=== PATIENT | male | born 1980 | race African-American/Black ===

== ENCOUNTER 2017-03-20 08:21 | Emergency (ER) | payer MEDICAID ==
[~2017-03-20] VITALS: Ht 175.3 cm; Wt 60.0 kg
[~2017-03-20 08:21] MED LIST: PENI500T PO
[2017-03-20 08:22] VITALS: BP 127/80; PULSE 66; RESP 20; TEMP 98.4; O2SAT 98
[2017-03-20 09:00] VITALS: RESP 18; O2SAT 99
[2017-03-20] MEDS ORDERED: SODIUM CHLOR 0.9% 1000 ML INJ 1,000 ML IV SCH (09:00)
[2017-03-20] MEDS ORDERED: ALUMINUM/MAGNESIUM/SIMETH 30 ML CUP PO ONE (09:00)
[2017-03-20] MEDS ORDERED: FAMOTIDINE 20 MG/2 ML VIAL IV PUSH ONE (09:00)
[2017-03-20] MEDS ORDERED: LIDOCAINE VISCOUS 2% SOLN 15 ML UDC PO ONE (09:00)
[2017-03-20] MEDS: SODIUM CHLORIDE 0.9% FLUSH 10 ML FLUSH IVF PRN ×3 (09:10→10:34)
--- NOTE | 2017-03-20 09:19 | PD ---
HPI Chief Complaint: Chest Pain Time Seen by Provider: 08:44 Travel History International Travel<30 days: No Contact w/Intl Traveler<30days: No Traveled to known affect area: No History of Present Illness HPI Patient is a 36-year-old male with only history of asthma who presents to emergency room with complaints of epigastric pain for the past month. Reports that for the past month, he has had constant pain to his epigastrium, that it it hurts him to take a deep breath, reports it hurts when he moves, reports that nothing makes his symptoms better or worse. Patient reports no fevers or chills, denies chest pain at this time. Patient denies any recent travels or trips, denies any use of drugs. 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 Patient does report that he drinks a few beers at nighttime, patient with no other complaints. PFSH Past Medical History Asthma: Yes Autoimmune Disease: No Blood Disorders: No Cancer: No Cardiovascular Problems: No Diminished Hearing: No Endocrine: No Genitourinary: No Immune Disorder: No Musculoskeletal: No Neurologic: No Psychiatric: No Reproductive: No Respiratory: Yes Tetanus Vaccination: > 5 Years Influenza Vaccination: No Past Surgical History Surgical History: No Previous Surgery Other Surgery: No Social History Alcohol Use: No Tobacco Use: No Substance Use: No (pt denies ) Allergies-Medications (Allergen,Severity, Reaction): Coded Allergies: Codeine (Verified Allergy, Severe, itching, 03/20/17) Reported Meds & Prescriptions Reported Meds & Active Scripts Active Protonix (Pantoprazole Sodium) 40 Mg Tab 40 Mg PO DAILY Review of Systems General / Constitutional: No: Fever Eyes: No: Visual changes HENT: No: Headaches Cardiovascular: No: Chest Pain or Discomfort Respiratory: Positive: Shortness of Breath Gastrointestinal: Positive: Abdominal Pain Genitourinary: No: Dysuria Musculoskeletal: No: Pain Skin: No Rash Neurologic: No: Weakness Psychiatric: No: Depression Endocrine: No: Polydipsia Hematologic/Lymphatic: No: Easy Bruising Physical Exam Narrative GENERAL: No acute distress, nontoxic SKIN: Focused skin assessment warm/dry. HEAD: Atraumatic. Normocephalic. EYES: Pupils equal and round. No scleral icterus. No injection or drainage. ENT: No nasal bleeding or discharge. Mucous membranes pink and moist. NECK: Trachea midline. No JVD. CARDIOVASCULAR: Regular rate and rhythm. No murmur appreciated. RESPIRATORY: No accessory muscle use. Clear to auscultation. Breath sounds equal bilaterally. GASTROINTESTINAL: Abdomen soft, patient with increased tenderness to his epigastrium, no rebound or guarding on exam MUSCULOSKELETAL: No obvious deformities. No clubbing. No cyanosis. No edema. NEUROLOGICAL: Awake and alert. No obvious cranial nerve deficits. Motor grossly within normal limits. Normal speech. PSYCHIATRIC: Appropriate mood and affect; insight and judgment normal. Data Data Last Documented VS Vital Signs Date Time Temp Pulse Resp B/P Pulse Ox O2 Delivery O2 Flow Rate FiO2 03/20/17 11:39 98.0 47 18 129/80 98 Room Air Orders Electrocardiogram (03/20/17 ) Ckmb (Isoenzyme) Profile (03/20/17 09:00) Complete Blood Count With Diff (03/20/17 09:00) Comprehensive Metabolic Panel (03/20/17:00) D-Dimer (03/20/17:00) Magnesium (Mg) (03/20/17 09:00) Prothrombin Time / Inr (Pt) (03/20/17 09:00) Act Partial Throm Time (Ptt) (03/20/17 09:00) Troponin I (03/20/17:00) Lipase (03/20/17 09:00) Chest, Single Ap (03/20/17 09:00) Ecg Monitoring (03/20/17 09:00) Iv Access Insert/Monitor (03/20/17:00) Oximetry (03/20/17 09:00) Sodium Chloride 0.9% Flush (Ns Flush) (03/20/17 09:00) Sodium Chlor 0.9% 1000 Ml Inj (Ns 1000 M (03/20/17 09:00) Famotidine Inj (Pepcid Inj) (03/20/17 09:00) Al-Mag Hy-Si 40-40-4 Mg/Ml Liq (Mag-Al P (03/20/17 09:00) Lidocaine 2% Viscous (Xylocaine 2% Visco (03/20/17 09:00) CKMB (03/20/17 09:05) CKMB% (03/20/17 09:05) Ct Pulmonary Angiogram (03/20/17 10:19) Ketorolac Inj (Toradol Inj) (03/20/17 10:30) Iohexol 350 Inj (Omnipaque 350 Inj) (03/20/17 11:28) Electrocardiogram (03/20/17 ) Ckmb (Isoenzyme) Profile (03/20/17 13:04) Troponin I (03/20/17 13:04) CKMB (03/20/17 13:00) CKMB% (03/20/17 13:00) Labs Laboratory Tests Test 03/20/17 03/20/17 09:05 13:00 White Blood Count 4.3 TH/MM3 Red Blood Count 4.95 MIL/MM3 Hemoglobin 14.8 GM/DL Hematocrit 43.9 % Mean Corpuscular Volume 88.7 FL Mean Corpuscular Hemoglobin 29.9 PG Mean Corpuscular Hemoglobin 33.7 % Concent Red Cell Distribution Width 13.3 % Platelet Count 186 TH/MM3 Mean Platelet Volume 7.8 FL Neutrophils (%) (Auto) 52.1 % Lymphocytes (%) (Auto) 34.7 % Monocytes (%) (Auto) 10.1 % Eosinophils (%) (Auto) 2.5 % Basophils (%) (Auto) 0.6 % Neutrophils # (Auto) 2.3 TH/MM3 Lymphocytes # (Auto) 1.5 TH/MM3 Monocytes # (Auto) 0.4 TH/MM3 Eosinophils # (Auto) 0.1 TH/MM3 Basophils # (Auto) 0.0 TH/MM3 CBC Comment DIFF FINAL Differential Comment Prothrombin Time 10.8 SEC Prothromb Time International 1.0 RATIO Ratio Activated Partial 28.5 SEC Thromboplast Time D-Dimer Quantitative (PE/DVT) LESS THAN 0.19 MG/L FEU Sodium Level 141 MEQ/L Potassium Level 4.5 MEQ/L Chloride Level 106 MEQ/L Carbon Dioxide Level 27.2 MEQ/L Anion Gap 8 MEQ/L Blood Urea Nitrogen 12 MG/DL Creatinine 1.33 MG/DL Estimat Glomerular Filtration 74 ML/MIN Rate Random Glucose 81 MG/DL Calcium Level 8.8 MG/DL Magnesium Level 2.2 MG/DL Total Bilirubin 0.5 MG/DL Aspartate Amino Transf 16 U/L (AST/SGOT) Alanine Aminotransferase 19 U/L (ALT/SGPT) Alkaline Phosphatase 71 U/L Total Creatine Kinase 173 U/L 157 U/L Creatine Kinase MB LESS THAN 0.5 0.6 NG/ML NG/ML Troponin I LESS THAN 0.02 LESS THAN 0.02 NG/ML NG/ML Total Protein 7.3 GM/DL Albumin 3.8 GM/DL Lipase 83 U/L MDM Medical Decision Making Medical Screen Exam Complete: Yes Emergency Medical Condition: Yes Interpretation(s) EKG at 0838: Sinus bradycardia at 49 beats minute, QT/QTc 414/384, patient with early repolarization on EKG Vital Signs Date Time Temp Pulse Resp B/P Pulse Ox O2 Delivery O2 Flow Rate FiO2 03/20/17 09:00 18 99 Room Air 03/20/17 08:31 17 99 Room Air 03/20/17 08:22 98.4 66 20 127/80 98 Room Air Differential Diagnosis GERD, ACS though unlikely, PE, gastritis, electrolyte abnormality Narrative Course 36-year-old male who presents to emergency room with complaints of epigastric pain for the past month. Patient has been having constant pains to his epigastrium, reports that nothing makes pain better or worse. Patient reports that food does not make symptoms better or worse, reports that taking deep breath and movement does make symptoms worse. Patient was placed on a cardiac monitor technician upon arrival to emergency room. EKG obtained which shows early repolarization, no acute changes. Plan to check labs , including d-dimer, CBC, CMP, x-ray of the chest. GI cocktail as well as Pepcid ordered. We'll continue to monitor patient on cardiac monitor technician. Vital Signs Date Time Temp Pulse Resp B/P Pulse Ox O2 Delivery O2 Flow Rate FiO2 03/20/17 11:39 98.0 47 18 129/80 98 Room Air 03/20/17 11:34 17 03/20/17 10:01 49 17 136/88 99 Room Air 03/20/17 09:00 18 99 Room Air 03/20/17 08:31 17 99 Room Air 03/20/17 08:22 98.4 66 20 127/80 98 Room Air Laboratory Tests Test 03/20/17 09:05 White Blood Count 4.3 TH/MM3 (4.0-11.0) Red Blood Count 4.95 MIL/MM3 (4.50-5.90) Hemoglobin 14.8 GM/DL (13.0-17.0) Hematocrit 43.9 % (39.0-51.0) Mean Corpuscular Volume 88.7 FL (80.0-100.0) Mean Corpuscular Hemoglobin 29.9 PG (27.0-34.0) Mean Corpuscular Hemoglobin 33.7 % Concent (32.0-36.0) Red Cell Distribution Width 13.3 % (11.6-17.2) Platelet Count 186 TH/MM3 (150-450) Mean Platelet Volume 7.8 FL (7.0-11.0) Neutrophils (%) (Auto) 52.1 % (16.0-70.0) Lymphocytes (%) (Auto) 34.7 % (9.0-44.0) Monocytes (%) (Auto) 10.1 % (0.0-8.0) Eosinophils (%) (Auto) 2.5 % (0.0-4.0) Basophils (%) (Auto) 0.6 % (0.0-2.0) Neutrophils # (Auto) 2.3 TH/MM3 (1.8-7.7) Lymphocytes # (Auto) 1.5 TH/MM3 (1.0-4.8) Monocytes # (Auto) 0.4 TH/MM3 (0-0.9) Eosinophils # (Auto) 0.1 TH/MM3 (0-0.4) Basophils # (Auto) 0.0 TH/MM3 (0-0.2) CBC Comment DIFF FINAL Differential Comment Prothrombin Time 10.8 SEC (9.8-11.6) Prothromb Time International 1.0 RATIO Ratio Activated Partial 28.5 SEC Thromboplast Time (24.3-30.1) D-Dimer Quantitative (PE/DVT) LESS THAN 0.19 MG/L FEU (0.00-0.50) Sodium Level 141 MEQ/L (136-145) Potassium Level 4.5 MEQ/L (3.5-5.1) Chloride Level 106 MEQ/L (98-107) Carbon Dioxide Level 27.2 MEQ/L (21.0-32.0) Anion Gap 8 MEQ/L (5-15) Blood Urea Nitrogen 12 MG/DL (7-18) Creatinine 1.33 MG/DL (0.60-1.30) Estimat Glomerular Filtration 74 ML/MIN (>89) Rate Random Glucose 81 MG/DL (74-106) Calcium Level 8.8 MG/DL (8.5-10.1) Magnesium Level 2.2 MG/DL (1.5-2.5) Total Bilirubin 0.5 MG/DL (0.2-1.0) Aspartate Amino Transf 16 U/L (15-37) (AST/SGOT) Alanine Aminotransferase 19 U/L (12-78) (ALT/SGPT) Alkaline Phosphatase 71 U/L (45-117) Total Creatine Kinase 173 U/L (39-308) Creatine Kinase MB LESS THAN 0.5 NG/ML (0.5-3.6) Troponin I LESS THAN 0.02 NG/ML (0.02-0.05) Total Protein 7.3 GM/DL (6.4-8.2) Albumin 3.8 GM/DL (3.4-5.0) Lipase 83 U/L (73-393) Last Impressions CT Angiography 03/20/17 1019 Signed Impressions: Service Date/Time: Monday, March 20, 2017 11:22 - CONCLUSION: No evidence of pulmonary embolus. Mild paraseptal emphysema. Red Maxwell MD Chest X-Ray 03/20/17 0900 Signed Impressions: Service Date/Time: Monday, March 20, 2017 09:12 - CONCLUSION: No acute cardiopulmonary disease identified. Red Maxwell MD All labs and all studies reviewed patient in detail. Patient reports that he is feeling much better at this time. Symptoms are most likely from esophagitis , he will most likely need EGD as outpt. Plan to start patient on omeprazole and follow-up with dive master, will have him return to emergency room as needed Patient with no chest pain or sob during the entire ER visit, EKG shows is ST segment elevations diffusely, consistent with early repolarization. Repeat trop is negative - patient's pain is in his epigastrium and not in his chest, I do believe the patient has esophagitis and not pericarditis this time. He will follow up with his primary care doctor and will return to emergency room as needed. Diagnosis Primary Impression: Esophagitis Patient Instructions: General Instructions Additional Instructions: Please follow up with your primary care doctor in 2-3 days Please follow up with a dive master as soon as possible Return to ER as needed Med/Other Pt SpecificInfo: Prescription(s) given Scripts Pantoprazole (Protonix)40 Mg Tab40 Mg PO DAILY #30 TAB Ref 0 Prov:Mica Titus DO 03/20/17 Disposition: 01 DISCHARGE HOME Condition: Stable Mica Titus DO Mar 20, 2017 09:19
--- NOTE | 2017-03-20 09:21 | RADRPT ---
EXAM DATE/TIME: 03/20/2017 09:12 [facility] COMPARISON: No previous studies available for comparison. INDICATIONS : Chest pain MEDICAL HISTORY : None. SURGICAL HISTORY : None. ENCOUNTER: Initial ACUITY: >1 year PAIN SCORE: 6/10 LOCATION: Bilateral chest FINDINGS: Single AP view of the chest. The lungs are clear. Cardiomediastinal silhouette within normal limits. No evidence of pleural effusion or pneumothorax. CONCLUSION: No acute cardiopulmonary disease identified. Red Maxwell MD on March 20, 2017 at 9:18 Board Certified Radiologist. This report was verified electronically.
[2017-03-20 09:33] LABS: AUTOMATED NEUTROPHIL # 2.3 TH/MM3 (1.8-7.7); BASOPHIL % 0.6 % (0.0-2.0); EOSINOPHIL # 0.1 TH/MM3 (0-0.4); EOSINOPHIL % 2.5 % (0.0-4.0); HEMATOCRIT 43.9 % (39.0-51.0); HEMO FLAGS DIFF FINAL; LYMPH % 34.7 % (9.0-44.0); LYMPHOCYTE # 1.5 TH/MM3 (1.0-4.8); MEAN CELL VOLUME 88.7 FL (80.0-100.0); MEAN CORPUSCULAR HEMOGLOBIN 29.9 PG (27.0-34.0); MEAN CORPUSCULAR HGB CONC 33.7 % (32.0-36.0); MONO % 10.1 % (0.0-8.0); NEUT % 52.1 % (16.0-70.0); PLATELET COUNT 186 TH/MM3 (150-450); RED BLOOD COUNT 4.95 MIL/MM3 (4.50-5.90); RED CELL DISTRIBUTION WIDTH 13.3 % (11.6-17.2); WHITE BLOOD COUNT 4.3 TH/MM3 (4.0-11.0)
[2017-03-20 09:44] LABS: APTT (PATIENT) 28.5 SEC (24.3-30.1); PROTHROMBIN TIME - PATIENT 10.8 SEC (9.8-11.6)
[2017-03-20 09:45] LABS: ANION GAP 8 MEQ/L (5-15); AST (GOT) 16 U/L (15-37); BICARBONATE 27.2 MEQ/L (21.0-32.0); BLOOD UREA NITROGEN 12 MG/DL (7-18); CHLORIDE 106 MEQ/L (98-107); GLOMERULAR FILTRATION RATE 74 ML/MIN (>89); MAGNESIUM 2.2 MG/DL (1.5-2.5); POTASSIUM 4.5 MEQ/L (3.5-5.1); SODIUM (NA) 141 MEQ/L (136-145)
[2017-03-20 09:47] LABS: ALT (GPT) 19 U/L (12-78)
[2017-03-20 09:50] LABS: ALKALINE PHOSPHATASE 71 U/L (45-117); CREATINE KINASE 173 U/L (39-308); TOTAL BILIRUBIN ADULT 0.5 MG/DL (0.2-1.0)
[2017-03-20 10:01] VITALS: BP 136/88; PULSE 49; RESP 17; O2SAT 99
[2017-03-20 10:02] LABS: CKMB LESS THAN 0.5 NG/ML (0.5-3.6)
[2017-03-20] MEDS ORDERED: KETOROLAC TROMETHAMINE 30 MG/ML (IVP) VIAL IV PUSH ONE (10:30)
[2017-03-20] MEDS ORDERED: IOHEXOL 350 MG/ML 10 ML VIAL (for RAD DIAG) IV ONE (11:28)
[2017-03-20 11:39] VITALS: BP 129/80; PULSE 47; RESP 18; TEMP 98; O2SAT 98
--- NOTE | 2017-03-20 11:51 | RADRPT ---
EXAM DATE/TIME: 03/20/2017 11:22 [facility] COMPARISON: No previous studies available for comparison. INDICATIONS : Chest pain. IV CONTRAST: 100 cc Omnipaque 350 (iohexol) IV RADIATION DOSE: 22.38 CTDIvol (mGy) MEDICAL HISTORY : Asthma. SURGICAL HISTORY : None. ENCOUNTER: Initial ACUITY: 1 day PAIN SCALE: 5/10 LOCATION: Bilateral chest TECHNIQUE: Volumetric scanning of the chest was performed using a pulmonary embolism protocol MIP images were re constructed. Using automated exposure control and adjustment of the mA and/or kV according to patien t size, radiation dose was kept as low as reasonably achievable to obtain optimal diagnostic quality images. FINDINGS: PULMONARY ARTERIES: No filling defects are seen in the pulmonary arteries through the segmental level. LUNGS: Mild paraseptal emphysema bilaterally. PLEURAE: There is no pleural thickening or pleural effusion. No pneumothorax. MEDIASTINUM: There is good visualization of the great vessels of the middle mediastinum. No evidence of mediastin al or hilar adenopathy/mass. MUSCULOSKELETAL: Within normal limits for patient age. MISCELLANEOUS: The visualized upper abdominal organs demonstrate no acute abnormality. CONCLUSION: No evidence of pulmonary embolus. Mild paraseptal emphysema. Red Maxwell MD on March 20, 2017 at 11:44 Board Certified Radiologist. This report was verified electronically.
[2017-03-20] MEDS ORDERED: PROT40TA PO (12:26)
[2017-03-20 13:44] LABS: CREATINE KINASE 157 U/L (39-308)
[2017-03-20 13:56] LABS: CKMB 0.6 NG/ML (0.5-3.6)
[2017-03-20 14:17] VITALS: BP 124/81; TEMP 97.8
--- NOTE | 2017-03-20 14:40 | EKG ---
Date Performed: 03/20/2017 Time Performed: 08:38:32 PTAGE: 36 years EKG: SINUS BRADYCARDIA EARLY REPOLARIZATION Compared to prior tracing no significant change BORD DEYSI ECG PREVIOUS TRACING : 04/24/2011 18.12 DOCTOR: Gigi Oliva Interpretating Date/Time 03/20/2017 14:39:17
--- NOTE | 2017-03-21 11:20 | EKG ---
Date Performed: 03/20/2017 Time Performed: 12:38:21 PTAGE: 36 years EKG: SINUS BRADYCARDIA ST ELEVATION, PROBABLY EARLY REPOLARIZATION BORDERLINE ECG Compared to pr ior tracing no significant change PREVIOUS TRACING : 03/20/2017 08.38 DOCTOR: Arsalan Leos Interpretating Date/Time 03/21/2017 11:17:38
== END 2017-03-20 14:17 | disposition home or self-care (01) ==
LOC: NEPC 08:21
DX: K20.9 Esophagitis, unspecified (principal); R00.1 Bradycardia, unspecified; R06.02 Shortness of breath; J45.909 Unspecified asthma, uncomplicated
CPT/HCPCS: 71010; 71275; 80053; 82550; 82552; 83690; 83735; 84484; 85025; 85379; 85610; 85730; 93005; 96361; 96374; 96375; 99285; J1885; J7030; Q9967

== ENCOUNTER 2017-12-29 05:25 | Inpatient (IN) | payer MEDICAID ==
[~2017-12-29] VITALS: Ht 175.3 cm; Wt 62.7 kg
[2017-12-29] VITALS (11 sets, daily range): BP systolic 80–140; BP diastolic 81–89; PULSE 86–98; RESP 17–26; TEMP 97.4–99.8; O2SAT 97–100
[~2017-12-29 05:25] MED LIST changes: -PENI500T PO; +PROT40TA PO
[2017-12-29] MEDS ORDERED: IOHEXOL 350 MG/ML 10 ML VIAL (for RAD DIAG) IVCONTRAST ONE (05:26)
[2017-12-29] MEDS ORDERED: ceFAZolin 2 GM PREMIX 50 ML ONE (05:28)
[2017-12-29] MEDS ORDERED: DIPHTH/TETANUS/ACEL PERTUSSIS (BOOSTER) 0.5 ML VIAL/PFS IM ONE ×2 (05:30→05:55)
[2017-12-29] MEDS ORDERED: ceFAZolin 2 GM PREMIX 50 ML IV STA (05:30)
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
[2017-12-29] MEDS ORDERED: MIDAZOLAM HCL 5 MG/ML VIAL (1 ML) ONE (05:42)
[2017-12-29] MEDS ORDERED: ONDANSETRON HCL 4 MG/2 ML VIAL ONE (05:42)
[2017-12-29] MEDS ORDERED: LIDOCAINE 1%/EPINEPHrine 1:100,000 SOLN 30 ML VIAL ONE (05:44)
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
[2017-12-29 05:57] LABS: BASOPHIL % 0.2 % (0.0-2.0); HEMATOCRIT 41.3 % (39.0-51.0); HEMOGLOBIN 14.3 GM/DL (13.0-17.0); LYMPH % 9.1 % (9.0-44.0); LYMPHOCYTE # 1.2 TH/MM3 (1.0-4.8); MEAN CELL VOLUME 87.3 FL (80.0-100.0); MEAN CORPUSCULAR HEMOGLOBIN 30.2 PG (27.0-34.0); MEAN CORPUSCULAR HGB CONC 34.6 % (32.0-36.0); MEAN PLATELET VOLUME 7.7 FL (7.0-11.0); MONO % 5.6 % (0.0-8.0); MONOCYTE # 0.7 TH/MM3 (0-0.9); NEUT % 85.1 % (16.0-70.0); PLATELET COUNT 213 TH/MM3 (150-450); RED BLOOD COUNT 4.73 MIL/MM3 (4.50-5.90); RED CELL DISTRIBUTION WIDTH 14.2 % (11.6-17.2); WHITE BLOOD COUNT 12.9 TH/MM3 (4.0-11.0)
[2017-12-29 06:04] LABS: INTERNATIONAL NORMALIZED RATIO 1.1 RATIO; PROTHROMBIN TIME - PATIENT 10.8 SEC (9.8-11.6)
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
[2017-12-29] MEDS ORDERED: RESP: ALBUTEROL 2.5 MG/3 ML NEB (SCH) ONE (06:36)
[2017-12-29] MEDS ORDERED: RESP: ALBUTEROL 2.5 MG/3 ML NEB (PRN) INH (06:45)
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
[2017-12-29] MEDS ORDERED: ACETAMINOPHEN 325 MG TAB PO PRN (07:00)
[2017-12-29] MEDS ORDERED: MISCELLANEOUS NURSING INFORMATION XX SCH (07:00)
[2017-12-29] MEDS ORDERED: CHLORHEXIDINE GLUCONATE 2 % 1 PACK (2 CLOTHS) TOP PRN (07:00)
[2017-12-29] MEDS ORDERED: MORPHINE SULFATE 4 MG/ML INJ IV PUSH PRN (07:00)
[2017-12-29] MEDS ORDERED: MORPHINE SULFATE 8 MG/ML INJ IV PUSH PRN (07:00)
[2017-12-29] MEDS ORDERED: ONDANSETRON HCL 4 MG/2 ML VIAL IV PUSH PRN (07:00)
[2017-12-29] MEDS ORDERED: ENALAPRILAT 1.25 MG/ML VIAL IV PUSH PRN (07:00)
[2017-12-29] MEDS: PANTOPRAZOLE SODIUM 40 MG VIAL IVP SCH (07:10)
[2017-12-29] MEDS: RESP: ALBUTEROL 2.5 MG/IPRATROPIUM 0.5 MG NEB (SCH) NEB ×3 (08:22→22:00)
[2017-12-29] MEDS: MAGNESIUM HYDROXIDE SUSP 30 ML CUP PO SCH ×2 (09:00→20:46)
[2017-12-29] MEDS: DOCUSATE SODIUM 100 MG CAP PO SCH ×2 (09:00→20:45)
[2017-12-29] MEDS ORDERED: oxyCODONE/ACETAMINOPHEN 5 MG/325 MG TAB PO PRN (09:15)
[2017-12-29] MEDS: HYDROmorphone HCL PF 2 MG/ML VIAL IV PUSH PRN ×3 (09:27→17:18)
[2017-12-29 09:41] LABS: HEMATOCRIT 36.3 % (39.0-51.0); HEMOGLOBIN 12.2 GM/DL (13.0-17.0)
[2017-12-29] MEDS ORDERED: POTASSIUM CHLORIDE 10 MEQ CONTROLLED RELEASE TAB PO ONE (10:45)
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
[2017-12-29] MEDS: oxyCODONE/ACETAMINOPHEN 10 MG/325 MG TAB PO PRN ×2 (20:45→23:50)
[2017-12-29] MEDS: SODIUM CHLORIDE 0.9% FLUSH 10 ML FLUSH IV FLUSH PRN (20:45)
[2017-12-30] VITALS (8 sets, daily range): BP systolic 134–149; BP diastolic 85–96; PULSE 77–113; RESP 17–18; TEMP 97.9–99.9; O2SAT 96–99
[2017-12-30] MEDS: RESP: ALBUTEROL 2.5 MG/IPRATROPIUM 0.5 MG NEB (SCH) NEB ×4 (03:07→22:00)
[2017-12-30] MEDS: oxyCODONE/ACETAMINOPHEN 10 MG/325 MG TAB PO PRN ×3 (03:39→11:58)
[2017-12-30] MEDS: CHLORHEXIDINE GLUCONATE 2 % 1 PACK (2 CLOTHS) TOP SCH (03:45)
[2017-12-30] MEDS: PANTOPRAZOLE SODIUM 40 MG VIAL IVP SCH (05:53)
[2017-12-30 06:08] LABS: AUTOMATED NEUTROPHIL # 7.8 TH/MM3 (1.8-7.7); BASOPHIL % 0.1 % (0.0-2.0); HEMATOCRIT 27.6 % (39.0-51.0); HEMOGLOBIN 9.7 GM/DL (13.0-17.0); LYMPH % 13.4 % (9.0-44.0); LYMPHOCYTE # 1.4 TH/MM3 (1.0-4.8); MEAN CELL VOLUME 87.7 FL (80.0-100.0); MEAN CORPUSCULAR HEMOGLOBIN 30.9 PG (27.0-34.0); MEAN CORPUSCULAR HGB CONC 35.2 % (32.0-36.0); MEAN PLATELET VOLUME 8.1 FL (7.0-11.0); MONO % 11.1 % (0.0-8.0); MONOCYTE # 1.1 TH/MM3 (0-0.9); NEUT % 75.4 % (16.0-70.0); PLATELET COUNT 146 TH/MM3 (150-450); RED BLOOD COUNT 3.15 MIL/MM3 (4.50-5.90); WHITE BLOOD COUNT 10.3 TH/MM3 (4.0-11.0)
[2017-12-30] MEDS ORDERED: DOCU1CAP39 PO (06:17)
[2017-12-30] MEDS ORDERED: MAGN30S PO (06:17)
[2017-12-30 06:27] LABS: ALBUMIN 3.3 GM/DL (3.4-5.0); BICARBONATE 28.5 MEQ/L (21.0-32.0); BLOOD UREA NITROGEN 9 MG/DL (7-18); CALCIUM 8.9 MG/DL (8.5-10.1); CHLORIDE 101 MEQ/L (98-107); CREATININE 1.11 MG/DL (0.60-1.30); GLUCOSE,RANDOM 117 MG/DL (74-106); SODIUM (NA) 136 MEQ/L (136-145)
[2017-12-30 06:36] LABS: ALKALINE PHOSPHATASE 83 U/L (45-117); ALT (GPT) 1268 U/L (12-78); AST (GOT) 1333 U/L (15-37); TOTAL BILIRUBIN ADULT 0.5 MG/DL (0.2-1.0); TOTAL PROTEIN 6.2 GM/DL (6.4-8.2)
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
[2017-12-30] MEDS: DOCUSATE SODIUM 100 MG CAP PO SCH ×2 (07:57→22:31)
[2017-12-30] MEDS: MAGNESIUM HYDROXIDE SUSP 30 ML CUP PO SCH ×2 (07:57→22:30)
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
[2017-12-30] MEDS ORDERED: HYDROmorphone HCL PF 2 MG/ML VIAL IV PUSH PRN (13:15)
[2017-12-30] MEDS ORDERED: WALKER WHEELS/F1 MIS (14:14)
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
[2017-12-30] MEDS: METHOCARBAMOL 500 MG TAB PO SCH ×2 (14:51→22:31)
[2017-12-30] MEDS: diphenhydrAMINE HCL 50 MG CAP PO PRN (14:51)
[2017-12-30] MEDS: LIDOCAINE HCL 5% PATCH T-DERMAL SCH (14:54)
[2017-12-31] VITALS (7 sets, daily range): BP systolic 133–144; BP diastolic 88; PULSE 96–102; RESP 17–18; TEMP 99.4–100.8; O2SAT 96–100
[2017-12-31] MEDS ORDERED: PADIMATE (CHAPSTICK) 4.5 GM TUBE TOPICAL PRN (00:30)
[2017-12-31] MEDS: CHLORHEXIDINE GLUCONATE 2 % 1 PACK (2 CLOTHS) TOP SCH (04:00)
[2017-12-31] MEDS: RESP: ALBUTEROL 2.5 MG/IPRATROPIUM 0.5 MG NEB (SCH) NEB ×4 (04:00→20:42)
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
[2017-12-31] MEDS: PANTOPRAZOLE SODIUM 40 MG VIAL IVP SCH (06:06)
[2017-12-31] MEDS: METHOCARBAMOL 500 MG TAB PO SCH ×3 (06:06→20:26)
[2017-12-31] MEDS: MAGNESIUM HYDROXIDE SUSP 30 ML CUP PO SCH ×2 (08:26→20:26)
[2017-12-31] MEDS: DOCUSATE SODIUM 100 MG CAP PO SCH ×2 (08:26→20:26)
[2017-12-31] MEDS: LIDOCAINE HCL 5% PATCH T-DERMAL SCH (09:00)
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
[2017-12-31] MEDS: ENOXAPARIN SODIUM 30 MG/0.3 ML SYRINGE SQ SCH ×2 (13:00→20:27)
[2017-12-31] MEDS: RESP: ALBUTEROL 2.5 MG/IPRATROPIUM 0.5 MG NEB (PRN) NEB (13:01)
[2018-01-01] VITALS (9 sets, daily range): BP systolic 134–155; BP diastolic 70–96; PULSE 91–106; RESP 18–20; TEMP 99–100.8; O2SAT 96–100
[2018-01-01] MEDS: diphenhydrAMINE HCL 50 MG CAP PO PRN (00:45)
[2018-01-01] MEDS: CHLORHEXIDINE GLUCONATE 2 % 1 PACK (2 CLOTHS) TOP SCH ×2 (01:59→23:11)
[2018-01-01] MEDS: RESP: ALBUTEROL 2.5 MG/IPRATROPIUM 0.5 MG NEB (SCH) NEB ×4 (04:35→21:06)
[2018-01-01 05:12] LABS: AUTOMATED NEUTROPHIL # 7.7 TH/MM3 (1.8-7.7); BASOPHIL % 0.2 % (0.0-2.0); EOSINOPHIL % 0.1 % (0.0-4.0); HEMATOCRIT 23.1 % (39.0-51.0); HEMOGLOBIN 7.9 GM/DL (13.0-17.0); LYMPH % 15.5 % (9.0-44.0); LYMPHOCYTE # 1.6 TH/MM3 (1.0-4.8); MEAN CELL VOLUME 89.3 FL (80.0-100.0); MEAN CORPUSCULAR HEMOGLOBIN 30.7 PG (27.0-34.0); MEAN CORPUSCULAR HGB CONC 34.4 % (32.0-36.0); MONO % 10.6 % (0.0-8.0); MONOCYTE # 1.1 TH/MM3 (0-0.9); NEUT % 73.6 % (16.0-70.0); PLATELET COUNT 134 TH/MM3 (150-450); RED BLOOD COUNT 2.58 MIL/MM3 (4.50-5.90); RED CELL DISTRIBUTION WIDTH 13.5 % (11.6-17.2); WHITE BLOOD COUNT 10.4 TH/MM3 (4.0-11.0)
[2018-01-01 05:26] LABS: AST (GOT) 269 U/L (15-37); BICARBONATE 30.8 MEQ/L (21.0-32.0); BLOOD UREA NITROGEN 6 MG/DL (7-18); CALCIUM 8.7 MG/DL (8.5-10.1); CHLORIDE 97 MEQ/L (98-107); CREATININE 1.01 MG/DL (0.60-1.30); GLOMERULAR FILTRATION RATE 77 ML/MIN (>89); GLUCOSE,RANDOM 95 MG/DL (74-106); SODIUM (NA) 136 MEQ/L (136-145)
[2018-01-01 05:27] LABS: ALT (GPT) 586 U/L (12-78)
[2018-01-01 05:29] LABS: ALKALINE PHOSPHATASE 94 U/L (45-117); TOTAL BILIRUBIN ADULT 0.6 MG/DL (0.2-1.0); TOTAL PROTEIN 6.5 GM/DL (6.4-8.2)
--- NOTE | 2018-01-01 05:48 | RADRPT ---
EXAM DATE/TIME: 01/01/2018 04:28 [facility] COMPARISON: CHEST SINGLE AP, December 31, 2017, 4:34. INDICATIONS : Short of breath. MEDICAL HISTORY : None. SURGICAL HISTORY : None. ENCOUNTER: Subsequent ACUITY: 3 days PAIN SCORE: Non-responsive. LOCATION: Bilateral chest FINDINGS: A single view of the chest demonstrates stable position of right thoracostomy tube. Stable right basi lar consolidation/effusion. Left lung is clear. Heart size is normal. Osseous structures are intact. CONCLUSION: Stable chest. Timmy Dawson MD on January 01, 2018 at 5:46 Board Certified Radiologist. This report was verified electronically.
[2018-01-01] MEDS: METHOCARBAMOL 500 MG TAB PO SCH ×3 (06:06→21:43)
[2018-01-01] MEDS: PANTOPRAZOLE SODIUM 40 MG VIAL IVP SCH (06:07)
[2018-01-01] MEDS: MAGNESIUM HYDROXIDE SUSP 30 ML CUP PO SCH ×2 (08:36→21:00)
[2018-01-01] MEDS: DOCUSATE SODIUM 100 MG CAP PO SCH ×2 (08:36→21:00)
[2018-01-01] MEDS: LIDOCAINE HCL 5% PATCH T-DERMAL SCH (08:36)
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
[2018-01-01] MEDS ORDERED: DIATRIZOATE MEGLUM/DIATRIZOATE SOD 9 ML CUP PO ONE (12:15)
[2018-01-01] MEDS ORDERED: BISACODYL 10 MG SUPP RECTAL ONE (12:30)
[2018-01-01] MEDS: LACTULOSE SYRUP 20 GM/30 ML CUP PO SCH (12:30)
[2018-01-01] MEDS ORDERED: ALPRAZolam 0.25 MG TAB PO PRN (14:30)
[2018-01-01] MEDS ORDERED: HYDROmorphone HCL PF 2 MG/ML VIAL IV PUSH PRN (14:45)
[2018-01-01] MEDS ORDERED: IOHEXOL 350 MG/ML 10 ML VIAL (for RAD DIAG) IVCONTRAST ONE (19:27)
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
[2018-01-01] MEDS: traZODone HCL 50 MG TAB PO SCH (21:43)
[2018-01-02] VITALS (7 sets, daily range): BP systolic 140–149; BP diastolic 68–93; PULSE 96–113; RESP 17–20; TEMP 98.6–100.8; O2SAT 92–99
[2018-01-02] MEDS: RESP: ALBUTEROL 2.5 MG/IPRATROPIUM 0.5 MG NEB (SCH) NEB ×2 (04:00→09:06)
[2018-01-02 04:24] LABS: AUTOMATED NEUTROPHIL # 7.3 TH/MM3 (1.8-7.7); BASOPHIL % 0.3 % (0.0-2.0); EOSINOPHIL % 0.3 % (0.0-4.0); HEMATOCRIT 21.9 % (39.0-51.0); HEMOGLOBIN 7.4 GM/DL (13.0-17.0); LYMPH % 10.6 % (9.0-44.0); MEAN CELL VOLUME 87.3 FL (80.0-100.0); MEAN CORPUSCULAR HEMOGLOBIN 29.6 PG (27.0-34.0); MEAN CORPUSCULAR HGB CONC 33.9 % (32.0-36.0); MEAN PLATELET VOLUME 7.3 FL (7.0-11.0); MONO % 11.9 % (0.0-8.0); MONOCYTE # 1.1 TH/MM3 (0-0.9); NEUT % 76.9 % (16.0-70.0); PLATELET COUNT 175 TH/MM3 (150-450); RED BLOOD COUNT 2.51 MIL/MM3 (4.50-5.90); RED CELL DISTRIBUTION WIDTH 13.4 % (11.6-17.2); WHITE BLOOD COUNT 9.5 TH/MM3 (4.0-11.0)
[2018-01-02 04:47] LABS: ALBUMIN 2.9 GM/DL (3.4-5.0); ALT (GPT) 419 U/L (12-78); AST (GOT) 123 U/L (15-37); BICARBONATE 35.2 MEQ/L (21.0-32.0); BLOOD UREA NITROGEN 5 MG/DL (7-18); CALCIUM 8.6 MG/DL (8.5-10.1); CHLORIDE 95 MEQ/L (98-107); CREATININE 1.09 MG/DL (0.60-1.30); GLOMERULAR FILTRATION RATE 71 ML/MIN (>89); GLUCOSE,RANDOM 115 MG/DL (74-106); SODIUM (NA) 135 MEQ/L (136-145)
[2018-01-02 04:50] LABS: ALKALINE PHOSPHATASE 91 U/L (45-117); TOTAL BILIRUBIN ADULT 0.4 MG/DL (0.2-1.0); TOTAL PROTEIN 6.6 GM/DL (6.4-8.2)
[2018-01-02] MEDS: METHOCARBAMOL 500 MG TAB PO SCH (05:11)
[2018-01-02] MEDS: PANTOPRAZOLE SODIUM 40 MG VIAL IVP SCH (05:12)
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
[2018-01-02] MEDS: METOCLOPRAMIDE HCL 10 MG/2 ML VIAL IV PUSH SCH ×3 (07:48→21:07)
[2018-01-02] MEDS: ENOXAPARIN SODIUM 30 MG/0.3 ML SYRINGE SQ SCH ×2 (10:38→21:05)
[2018-01-02] MEDS: LIDOCAINE HCL 5% PATCH T-DERMAL SCH (10:39)
[2018-01-02] MEDS: HYDROmorphone HCL PF 2 MG/ML VIAL IV PUSH PRN ×2 (10:51→21:06)
[2018-01-02] MEDS: RESP: ALBUTEROL 2.5 MG/IPRATROPIUM 0.5 MG NEB (PRN) NEB (11:05)
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
[2018-01-02] MEDS ORDERED: fentaNYL CITRATE 250 MCG/5 ML AMP ONE (13:51)
[2018-01-02] MEDS ORDERED: DO NOT ADM ANY ANTICOAGULANT DRUGS PRN (15:15)
[2018-01-02] MEDS ORDERED: *morphine SULFATE 8 MG/ML PERIprocedure ONLY ONE (16:15)
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
[2018-01-02] MEDS: CHLORHEXIDINE GLUCONATE 2 % 1 PACK (2 CLOTHS) TOP SCH (21:16)
[2018-01-03] VITALS (13 sets, daily range): BP systolic 136–177; BP diastolic 8–108; PULSE 76–105; RESP 16–24; TEMP 97.6–100.5; O2SAT 98–100
[2018-01-03] MEDS ORDERED: diphenhydrAMINE HCL 50 MG/ML VIAL IV PRN (00:15)
[2018-01-03 04:15] LABS: BASOPHIL % 0.1 % (0.0-2.0); EOSINOPHIL % 0.4 % (0.0-4.0); HEMATOCRIT 22.7 % (39.0-51.0); HEMOGLOBIN 8.1 GM/DL (13.0-17.0); LYMPH % 11.5 % (9.0-44.0); LYMPHOCYTE # 1.2 TH/MM3 (1.0-4.8); MEAN CELL VOLUME 87.8 FL (80.0-100.0); MEAN CORPUSCULAR HEMOGLOBIN 31.4 PG (27.0-34.0); MEAN CORPUSCULAR HGB CONC 35.7 % (32.0-36.0); MONO % 11.1 % (0.0-8.0); MONOCYTE # 1.2 TH/MM3 (0-0.9); NEUT % 76.9 % (16.0-70.0); PLATELET COUNT 225 TH/MM3 (150-450); RED BLOOD COUNT 2.59 MIL/MM3 (4.50-5.90); RED CELL DISTRIBUTION WIDTH 13.2 % (11.6-17.2); WHITE BLOOD COUNT 10.4 TH/MM3 (4.0-11.0)
[2018-01-03 04:36] LABS: ALBUMIN 2.9 GM/DL (3.4-5.0); AST (GOT) 71 U/L (15-37); BICARBONATE 32.1 MEQ/L (21.0-32.0); BLOOD UREA NITROGEN 7 MG/DL (7-18); CHLORIDE 95 MEQ/L (98-107); CREATININE 0.99 MG/DL (0.60-1.30); GLOMERULAR FILTRATION RATE 103 ML/MIN (>89); GLUCOSE,RANDOM 88 MG/DL (74-106); SODIUM (NA) 135 MEQ/L (136-145)
[2018-01-03 04:37] LABS: ALT (GPT) 304 U/L (12-78)
[2018-01-03 04:40] LABS: ALKALINE PHOSPHATASE 140 U/L (45-117); TOTAL BILIRUBIN ADULT 0.5 MG/DL (0.2-1.0)
[2018-01-03] MEDS: METOCLOPRAMIDE HCL 10 MG/2 ML VIAL IV PUSH SCH ×3 (06:00→22:14)
[2018-01-03] MEDS ORDERED: NALOXONE HCL 0.4 MG/ML AMP ONE (06:37)
[2018-01-03] MEDS: PANTOPRAZOLE SODIUM 40 MG VIAL IVP SCH ×2 (07:00→10:31)
--- NOTE | 2018-01-03 07:07 | HHI.FPPN ---
Addendum to progress note ADDENDUM Reason for addendum: Additonal documentation Additional information Responded to Melindat called on pt. Per response team, pt was unresponsive and was given Narcan, which improved his mental status. Vitals were stable. Pt became more alert, yet was agitated about everything going on. The primary team had been notified and the physician was on his way to talk with the patient. Further care deferred to the primary team. Michoacano Quinteros MD Jan 03, 2018 07:07
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
[2018-01-03] MEDS: ENOXAPARIN SODIUM 30 MG/0.3 ML SYRINGE SQ SCH ×2 (10:30→22:13)
[2018-01-03] MEDS: LIDOCAINE HCL 5% PATCH T-DERMAL SCH (10:57)
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
[2018-01-03] MEDS: METHOCARBAMOL 500 MG TAB PO SCH ×2 (14:00→22:13)
[2018-01-03] MEDS ORDERED: HYDROmorphone HCL PF 2 MG/ML VIAL IV PUSH PRN (15:00)
[2018-01-03] MEDS: MAGNESIUM HYDROXIDE SUSP 30 ML CUP PO SCH (21:00)
[2018-01-03] MEDS: DOCUSATE SODIUM 100 MG CAP PO SCH (21:00)
[2018-01-03] MEDS: traZODone HCL 50 MG TAB PO SCH (21:00)
[2018-01-03] MEDS: CHLORHEXIDINE GLUCONATE 2 % 1 PACK (2 CLOTHS) TOP SCH (22:27)
[2018-01-04] VITALS (11 sets, daily range): BP systolic 129–149; BP diastolic 74–88; PULSE 75–94; RESP 16–18; TEMP 98.3–100.7; O2SAT 94–99
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
[2018-01-04] MEDS: METOCLOPRAMIDE HCL 10 MG/2 ML VIAL IV PUSH SCH ×3 (06:10→21:15)
[2018-01-04] MEDS: LIDOCAINE HCL 5% PATCH T-DERMAL SCH (08:36)
[2018-01-04] MEDS: MAGNESIUM HYDROXIDE SUSP 30 ML CUP PO SCH ×2 (08:36→21:15)
[2018-01-04] MEDS: DOCUSATE SODIUM 100 MG CAP PO SCH ×2 (08:36→21:15)
[2018-01-04] MEDS: ENOXAPARIN SODIUM 30 MG/0.3 ML SYRINGE SQ SCH ×2 (08:36→21:16)
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
[2018-01-04] MEDS: LACTULOSE SYRUP 20 GM/30 ML CUP PO SCH (09:00)
[2018-01-04] MEDS: METHOCARBAMOL 500 MG TAB PO SCH ×3 (14:00→21:23)
[2018-01-04] MEDS ORDERED: PERC5TAB12 PO (16:10)
[2018-01-04] MEDS ORDERED: LIDO1ADH4 T-DERMAL (16:10)
[2018-01-04] MEDS ORDERED: METH500T3 PO (16:10)
[2018-01-04] MEDS: traZODone HCL 50 MG TAB PO SCH (21:16)
[2018-01-05] VITALS: PULSE 93
[2018-01-05] MEDS: CHLORHEXIDINE GLUCONATE 2 % 1 PACK (2 CLOTHS) TOP SCH (03:04)
[2018-01-05 04:00] VITALS: BP 121/78; PULSE 88; RESP 16; TEMP 99.8; O2SAT 95
[2018-01-05] MEDS: METHOCARBAMOL 500 MG TAB PO SCH (06:30)
[2018-01-05] MEDS: PANTOPRAZOLE SODIUM 40 MG VIAL IVP SCH (06:30)
[2018-01-05] MEDS: METOCLOPRAMIDE HCL 10 MG/2 ML VIAL IV PUSH SCH (06:30)
[2018-01-05] MEDS: SODIUM CHLORIDE 0.9% FLUSH 10 ML FLUSH IV FLUSH PRN (06:30)
--- NOTE | 2018-01-05 07:23 | RADRPT ---
EXAM DATE/TIME: 01/05/2018 06:08 [place] COMPARISON: CT ABDOMEN & PELVIS W CONTRAST, January 01, 2018, 19:23. CT THORAX W CONTRAST, January 01, 2018, 19:23. CHEST SINGLE AP, January 04, 2018, 5:02. INDICATIONS : Evaluate for pneumothorax post removal of chest tube from right side MEDICAL HISTORY : [facility] chest SURGICAL HISTORY : chest tube ENCOUNTER: Subsequent ACUITY: 1 week PAIN SCORE: 0/10 LOCATION: Bilateral chest FINDINGS: Portable upright AP view of the chest demonstrates a normal-sized cardiac silhouette. There is stable right basilar pleural-parenchymal opacity. No pneumothorax is visualized following removal of the ch est tube. Metallic density overlies the right inferior hemithorax. Left lung is clear. Bones demonstr ate no acute finding. CONCLUSION: 1. No pneumothorax is visualized following chest tube removal. 2. Stable right basilar opacity most likely representing pleural effusion with associated airspace co nsolidation and atelectasis. Vivek Espinoza MD on January 05, 2018 at 7:18 Board Certified Radiologist. This report was verified electronically.
[2018-01-05] MEDS: ENOXAPARIN SODIUM 30 MG/0.3 ML SYRINGE SQ SCH (07:36)
[2018-01-05 08:00] VITALS: BP 134/89; PULSE 98; RESP 20; TEMP 98.5; O2SAT 96
[2018-01-05 12:00] VITALS: BP 138/61; PULSE 94; RESP 20; TEMP 99.2; O2SAT 96
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
== END 2018-01-05 14:42 | disposition home or self-care (01) | DRG 964 ==
LOC: NEPI 05:25 → NEDA 06:13 → EDBD 06:13 → MERGE 06:13 → N03B 06:26 → N06A 18:58
PROVIDERS: ADMIT Surgery; ATTEND Surgery
PROC: 0W9930Z Drainage of Right Pleural Cavity with Drainage Device, Percutaneous Approach (ICD-10-PCS; principal; 2017-12-29)
PROC: 0BC68ZZ Extirpation of Matter from Right Lower Lobe Bronchus, Via Natural or Artificial Opening Endoscopic (ICD-10-PCS; 2018-01-02)
PROC: 0BC58ZZ Extirpation of Matter from Right Middle Lobe Bronchus, Via Natural or Artificial Opening Endoscopic (ICD-10-PCS; 2018-01-02)
DX: S21.341A Puncture wound with foreign body of right front wall of thorax with penetration into thoracic cavity, initial encounter (principal); S36.113A Laceration of liver, unspecified degree, initial encounter; J98.11 Atelectasis; S27.2XXA Traumatic hemopneumothorax, initial encounter; S27.321A Contusion of lung, unilateral, initial encounter; X95.9XXA Assault by unspecified firearm discharge, initial encounter; F14.10 Cocaine abuse, uncomplicated; F41.9 Anxiety disorder, unspecified
CPT/HCPCS: 31623; 32551; 71045; 71260; 74177; 76937; 80048; 80053; 80307; 85014; 85018; 85025; 85610; 85730; 86850; 86900; 86901; 86920; 87641; 90471; 90715; 94150; 94640; 94664; 94667; 94668; 96374; 96375; C9113; J0690; J1170; J1200; J1650; J2250; J2270; J2310; J2405; J2765; J3010; J7613; Q0163; Q9963; Q9967

== ENCOUNTER 2018-01-13 02:04 | Emergency (ER) | payer MEDICAID ==
[~2018-01-13 02:04] MED LIST changes: +DOCU1CAP39 PO; +LIDO1ADH4 T-DERMAL; +MAGN30S PO; +METH500T3 PO; +PERC5TAB12 PO; +WALKER WHEELS/F1 MIS
[2018-01-13 02:09] VITALS: BP 145/87; PULSE 95; RESP 22; TEMP 98.8; O2SAT 100
[2018-01-13 02:20] VITALS: BP 144/85; PULSE 78; RESP 16; TEMP 98.1; O2SAT 98
[2018-01-13 02:42] VITALS: O2SAT 98
[2018-01-13] MEDS ORDERED: RESP: ALBUTEROL 2.5 MG/IPRATROPIUM 0.5 MG NEB (SCH) NEB ONE (02:45)
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
[2018-01-13] MEDS ORDERED: KETOROLAC TROMETHAMINE 60 MG/2 ML (IM) VIAL IM ONE (03:00)
[2018-01-13] MEDS ORDERED: oxyCODONE/ACETAMINOPHEN 5 MG/325 MG TAB PO ONE (03:00)
[2018-01-13] MEDS ORDERED: AZITHROMYCIN 250 MG TAB PO ONE (03:30)
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
[2018-01-13 03:39] VITALS: BP 116/63; PULSE 85; RESP 16; O2SAT 97
[2018-01-13] MEDS ORDERED: ALBUAER3 INH (04:33)
[2018-01-13] MEDS ORDERED: CIPR-9 PO (04:33)
[2018-01-13] MEDS ORDERED: TRAM50TA PO (04:34)
[2018-01-13] MEDS ORDERED: IBUP-232 PO (04:52)
[2018-01-13] MEDS ORDERED: LORA-392 PO (04:53)
== END 2018-01-13 05:05 | disposition home or self-care (01) ==
LOC: NEPC 02:04
DX: G89.18 Other acute postprocedural pain (principal); F43.9 Reaction to severe stress, unspecified; K21.9 Gastro-esophageal reflux disease without esophagitis; J45.909 Unspecified asthma, uncomplicated
CPT/HCPCS: 71046; 94664; 96372; 99283; J1885